=== PATIENT | female | born 1945 | race Caucasian/White ===

== ENCOUNTER 2016-12-01 09:05 | Outpatient (CLI) | payer OTHER ==
[2016-12-01 09:57] LABS: eGFR (African) > 60; eGFR (Non-African) > 60
== END 2016-12-01 09:06 ==
LOC: LAB 09:05
PROVIDERS: ATTEND Family Medicine
DX: E78.2 Mixed hyperlipidemia (principal)
CPT/HCPCS: 36415; 80053; 80061

== ENCOUNTER 2017-07-29 08:12 | Outpatient (CLI) | payer OTHER ==
[2017-07-29 09:58] LABS: eGFR (African) > 60; eGFR (Non-African) > 60
== END 2017-07-29 08:13 ==
LOC: LAB 08:12
PROVIDERS: ATTEND Family Medicine
DX: E78.2 Mixed hyperlipidemia (principal); E03.9 Hypothyroidism, unspecified
CPT/HCPCS: 36415; 80053; 80061; 84443

== ENCOUNTER 2018-02-02 09:23 | Outpatient (CLI) | payer OTHER ==
[2018-02-02 10:14] LABS: eGFR (African) > 60; eGFR (Non-African) > 60
== END 2018-02-02 09:24 ==
LOC: LAB 09:23
PROVIDERS: ATTEND Family Medicine
DX: E78.2 Mixed hyperlipidemia (principal); E03.9 Hypothyroidism, unspecified
CPT/HCPCS: 36415; 80053; 80061; 84443